=== PATIENT | male | born 1950 | race Hispanic/Latino ===

== ENCOUNTER 2017-08-24 09:55 | Outpatient (CLI) | payer MEDICARE ==
--- NOTE | 2017-08-24 10:31 | XRay Report ---
Left hip 2 views: History: Hip pain. 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 The acetabular and the femoral component is anatomic and in alignment. No fracture dislocation or soft tissue calcification. Impression: Stable total left hip.
== END 2017-08-24 09:56 | disposition home or self-care (01) ==
LOC: SPVIMAG 09:55
PROVIDERS: ATTEND Orthopaedic Surgery Sports Medicine
DX: M25.552 Pain in left hip (principal); Z96.642 Presence of left artificial hip joint